=== PATIENT | male | born 1985 | race Caucasian/White ===

== ENCOUNTER 2017-04-06 10:07 | Emergency (ER) | payer OTHER ==
[2017-04-06] MEDS ORDERED: MAG HYDROX/AL HYDROX/SIMETH 30 ML, HYOSCYAMINE ELIXIR 10 ML, CIMETIDINE HCL 300 MG, LID... PO STA ×4 (10:49)
--- NOTE | 2017-04-06 11:12 | ED ---
General Adult HPI - General Chief complaint: Abdominal Pain Stated complaint: abdominal pain, states ulcer Time Seen by Provider: 04/06/17 10:39 Source: patient, RN notes reviewed Mode of arrival: ambulatory Limitations: no limitations - History of Present Illness Initial comments: Patient is a 31-year-old male significant past medical history for HIV, who presents emergency room today with a chief complaint of increased acid reflux over the last several months. States been using some antacids with little relief. Patient states that seems to be worse with certain foods that he eats. He does admit to being a daily smoker and drinks approximately 3 times a week. Patient does admit that alcohol seems to make it worse. Patient denies any other complaints or symptoms. Patient denies any recent fever, chills, shortness of breath, chest pain, back pain, nausea or vomiting, numbness or tingling, dysuria or hematuria, constipation or diarrhea, headaches or visual changes, or any other complaints. - Related Data Home Medications Medication Instructions Recorded Confirmed Fexofenadine HCl [Elham Allergy] 180 mg PO DAILY 04/06/17 04/06/17 L.acidoph,Paracasei, B.lactis 1 cap PO DAILY 04/06/17 04/06/17 [Probiotic] Ranitidine HCl [Zantac] 75 mg PO BID 04/06/17 04/06/17 Previous Rx's Medication Instructions Recorded Omeprazole 20 mg PO BID #20 capsule. 04/06/17 Allergies Allergy/AdvReac Type Severity Reaction Status Date / Time No Known Allergies Allergy Verified 04/06/17 11:05 Review of Systems ROS Statement: Those systems with pertinent positive or pertinent negative responses have been documented in the HPI. ROS Other: All systems not noted in ROS Statement are negative. Past Medical History Additional Past Medical History / Comment(s): HIV POSITIVE under treatment with Dr. Cornelius Johns. History of Any Multi-Drug Resistant Organisms: None Reported Past Surgical History: Hernia Repair Additional Past Surgical History / Comment(s): Inguinal hernia repair Past Psychological History: Anxiety, Depression Smoking Status: Current every day smoker Past Alcohol Use History: Rare Additional Past Alcohol Use History / Comment(s): Patient is a smoker of 2 packs of cigarettes per day for 10 years. He states he uses marijuana every day for the past 5 years. He states he drinks alcohol every other day and more frequently recently. In the past he would drink a couple of beers but now he is drinking up to 80 ounces of beer, 8-10 ounces of vodka and couple glasses of wine. Past Drug Use History: None Reported - Past Family History Father Additional Family Medical History / Comment(s): Father in his 70s and patient has no contact with him but knows he has had TIAs. Mother Additional Family Medical History / Comment(s): Other is alive in her 60s with history of mental health problems and narcotic abuse, renal failure, diabetes, possible CVA. Brother(s) Additional Family Medical History / Comment(s): Patient has 2 half-brothers and one half-sister and he does not know other medical problems. Patient does not have any children. General Exam - General Exam Comments Initial Comments: General: The patient is awake and alert, in no distress, and does not appear acutely ill. Eye: Pupils are equal, round and reactive to light, extra-ocular movements are intact. No nystagmus. There is normal conjunctiva bilaterally. No signs of icterus. Ears, nose, mouth and throat: There are moist mucous membranes and no oral lesions. Neck: The neck is supple, there is no tenderness or JVD. Cardiovascular: There is a regular rate and rhythm. No murmur, rub or gallop is appreciated. Respiratory: Lungs are clear to auscultation, respirations are non-labored, breath sounds are equal. No wheezes, stridor, rales, or rhonchi. Gastrointestinal: Normal appearance then. Normal bowel sounds. Soft on palpation. Patient does have mild tenderness to the epigastric. No rebound tenderness. No Guarding. Musculoskeletal: Normal ROM, no tenderness. Strength 5/5. Sensation intact. Pulses equal bilaterally 2+. Neurological: A&O x 3. CN II-XII intact, There are no obvious motor or sensory deficits. Coordination appears grossly intact. Speech is normal. Skin: Skin is warm and dry and no rashes or lesions are noted. Psychiatric: Cooperative, appropriate mood & affect, normal judgment. Limitations: no limitations Course Vital Signs 04/06/17 10:34 Temperature 100.4 F H Pulse Rate 98 Respiratory 20 Rate Blood Pressure 141/86 O2 Sat by Pulse 96 Oximetry Medical Decision Making - Medical Decision Making Case discussed in detail with attending physician Dr. Arizmendi. Results reviewed. Patient resting comfortably in stretcher. Patient's vital stable at this time. CD4 count is a send out lab. She does admit that he's had his symptoms for the last few months. He does admit to being a smoker and drinker. Long conversation was had with patient about smoking and drinking cessation Patient is advised follow-up the family doctor in the next 2 days. Advised return here to emergency room if any symptoms increase worsen or for any other concerns. - Lab Data Result diagrams: 04/06/17 11:06 04/06/17 11:06 Lab Results 04/06/17 04/06/17 04/06/17 Range/Units 11:06 11:06 11:54 WBC 9.0 (3.8-10.6) k/uL RBC 5.15 (4.30-5.90) m/uL Hgb 16.7 (13.0-17.5) gm/dL Hct 46.5 (39.0-53.0) % MCV 90.3 (80.0-100.0) fL MCH 32.5 (25.0-35.0) pg MCHC 35.9 (31.0-37.0) g/dL RDW 13.0 (11.5-15.5) % Plt Count 191 (150-450) k/uL Neutrophils % 62 % Lymphocytes % 27 % Monocytes % 7 % Eosinophils % 2 % Basophils % 0 % Neutrophils # 5.5 (1.3-7.7) k/uL Lymphocytes # 2.4 (1.0-4.8) k/uL Monocytes # 0.6 (0-1.0) k/uL Eosinophils # 0.2 (0-0.7) k/uL Basophils # 0.0 (0-0.2) k/uL Sodium 142 (137-145) mmol/L Potassium 4.8 (3.5-5.1) mmol/L Chloride 107 (98-107) mmol/L Carbon Dioxide 23 (22-30) mmol/L Anion Gap 12 mmol/L BUN 16 (9-20) mg/dL Creatinine 0.94 (0.66-1.25) mg/dL Est GFR (MDRD) Af Amer >60 (>60 ml/min/1.73 sqM) Est GFR (MDRD) Non-Af >60 (>60 ml/min/1.73 sqM) Glucose 106 H (74-99) mg/dL Calcium 9.5 (8.4-10.2) mg/dL Total Bilirubin 0.6 (0.2-1.3) mg/dL AST 31 (17-59) U/L ALT 38 (21-72) U/L Alkaline Phosphatase 79 (38-126) U/L Total Protein 8.1 (6.3-8.2) g/dL Albumin 4.7 (3.5-5.0) g/dL Lipase 73 (23-300) U/L Urine Color Yellow Urine Appearance Clear (Clear) Urine pH 7.5 (5.0-8.0) Ur Specific Barnard 1.014 (1.001-1.035) Urine Protein Negative (Negative) Urine Glucose (UA) Negative (Negative) Urine Ketones Negative (Negative) Urine Blood Negative (Negative) Urine Nitrite Negative (Negative) Urine Bilirubin Negative (Negative) Urine Urobilinogen <2.0 (<2.0) mg/dL Ur Leukocyte Esterase Negative (Negative) Disposition Clinical Impression: Abdominal pain Disposition: HOME SELF-CARE Condition: Good Instructions: Abdominal Pain (ED) Additional Instructions: Please use medication as discussed. Please stop smoking and drinking. Please follow-up with family doctor in the next 2 days of symptoms have not improved. Please return to emergency room if the symptoms increase or worsen or for any other concerns. Prescriptions: Omeprazole 20 mg PO BID #20 capsule.dr Referrals: Carlos A Burrell MD [Primary Care Provider] - 1-2 days Time of Disposition: 12:30
[2017-04-06 11:21] LABS: Basophils % (A) 0 %; CH 32.6; CHCM 36.2; Eosinophils # (A) 0.2 k/uL (0-0.7); Eosinophils % (A) 2 %; HCT 46.5 % (39.0-53.0); HDW 2.88; HGB 16.7 gm/dL (13.0-17.5); Luc # (Auto) 0.19; Luc % (Auto) 2; Lymphocytes # (A) 2.4 k/uL (1.0-4.8); Lymphocytes % (A) 27 %; MCH 32.5 pg (25.0-35.0); MCHC 35.9 g/dL (31.0-37.0); MCV 90.3 fL (80.0-100.0); Mean Platelet Volume 7.3; Monocytes # (A) 0.6 k/uL (0-1.0); Monocytes % (A) 7 %; Neutrophils # (A) 5.5 k/uL (1.3-7.7); Neutrophils % (A) 62 %; RBC 5.15 m/uL (4.30-5.90); WBC (Perox) 8.81
--- NOTE | 2017-04-06 11:27 | XR ---
EXAMINATION TYPE: XR chest 2V DATE OF EXAM: 04/06/2017 11:16 AM COMPARISON: NONE HISTORY: Heartburn, fever TECHNIQUE: Frontal and lateral views of the chest are obtained. FINDINGS: There is no focal air space opacity, pleural effusion, or pneumothorax seen. The cardiac silhouette size is within normal limits. The osseous structures are intact. IMPRESSION: No acute cardiopulmonary process.
[2017-04-06 11:42] LABS: ALT 38 U/L (21-72); AST 31 U/L (17-59); Alkaline Phosphatase 79 U/L (38-126); Anion Gap 12 mmol/L; Blood Urea Nitrogen 16 mg/dL (9-20); Calcium 9.5 mg/dL (8.4-10.2); Carbon Dioxide 23 mmol/L (22-30); Chloride 107 mmol/L (98-107); Glucose 106 mg/dL (74-99); Non-African American GFR(MDRD) >60 (>60 ml/min/1.73 sqM); Potassium 4.8 mmol/L (3.5-5.1); Sodium 142 mmol/L (137-145); Total Bilirubin 0.6 mg/dL (0.2-1.3); Total Protein 8.1 g/dL (6.3-8.2)
[2017-04-06 12:04] LABS: Appearance,Urine Clear (Clear); Bilirubin,Urine Negative (Negative); Glucose,Urine (UA) Negative (Negative); Ketones,Urine Negative (Negative); Leukocyte Esterase,Urine Negative (Negative); Nitrite,Urine Negative (Negative); PH, Urine 7.5 (5.0-8.0); Protein,Urine Negative (Negative); Specific Gravity,Urine 1.014 (1.001-1.035); UA Billing (MACRO vs. MICRO) CHEM; Urobilinogen,Urine <2.0 mg/dL (<2.0)
[2017-04-06 13:01] VITALS: BP 160/94; PULSE 82; RESP 18; TEMP 98.8
== END 2017-04-06 13:01 | disposition home or self-care (01) ==
LOC: EC 10:07
DX: R10.13 Epigastric pain (principal); Z21 Asymptomatic human immunodeficiency virus [HIV] infection status; F17.210 Nicotine dependence, cigarettes, uncomplicated; Z79.899 Other long term (current) drug therapy
CPT/HCPCS: 36415; 71020; 80053; 81003; 83690; 85025; 86360; 99284

== ENCOUNTER 2018-07-15 15:43 | Emergency (ER) | payer OTHER ==
[2018-07-15] MEDS ORDERED: DIPH,PERTUS(ACELL)TETVAC-LF 0.5 ML VIAL IM ONE (17:15)
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
[2018-07-15 17:44] VITALS: BP 154/95; PULSE 104; RESP 18; TEMP 99.4
== END 2018-07-15 17:43 | disposition home or self-care (01) ==
LOC: EC 15:43
DX: S41.112A Laceration without foreign body of left upper arm, initial encounter (principal); F17.200 Nicotine dependence, unspecified, uncomplicated; Z21 Asymptomatic human immunodeficiency virus [HIV] infection status; Z23 Encounter for immunization; Z79.899 Other long term (current) drug therapy; X99.1XXA Assault by knife, initial encounter; Y92.59 Other trade areas as the place of occurrence of the external cause; Y07.490 Male cousin, perpetrator of maltreatment and neglect
CPT/HCPCS: 90471; 90715; 99282